=== PATIENT | female | born 1950 | race Caucasian/White ===

== ENCOUNTER → 2016-10-08 | Outpatient (CLI) | payer OTHER, MEDICARE ==
[~2016-10-08] VITALS: Ht 162.6 cm; Wt 88.0 kg
[~2016-10-08] MED LIST: ACTUNK; EZET10TA63 PO; GLC500 PO; JNVUNK; LANS30CA12 PO; TPRSRUNK; TRCUNK
[2016-10-08 16:23] VITALS: BP 114/77; PULSE 69; Ht 162.6 cm; Wt 88.0 kg
== END | disposition home or self-care (01) ==
LOC: C.NEUR 12:59
PROVIDERS: ATTEND Physician Assistant
DX: G47.30 Sleep apnea, unspecified (principal)

== ENCOUNTER 2023-06-10 08:02 | Inpatient (IN) ==
--- NOTE | 2023-06-10 08:24 | Emergency Department Note ---
Impression & Plan Acute upper gastrointestinal bleeding, Gastrointestinal hemorrhage with hematemesis, Abdominal ascites, Acute hyperglycemia ED Provider Note NAME: HARRIS MORALES AGE: 72 SEX: F : 1950 ARRIVES VIA: Ambulance INFORMANT: Patient, EMS ED PROVIDER(S): Jean Paul Elias DO CHIEF COMPLAINT: UGIB HPI: The patient is a 72-year-old female who presented to the emergency department for hematemesis. The patient started having nausea and vomiting since this morning. The patient called 911. She started having hematemesis. She was vomiting mostly dark emesis. The patient denies having any abdominal pain at this time. She denies having any chest pain. She has no history of similar GI bleeding in the past. 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 She does not take any blood thinners. The patient was treated with IV fluids prior to arrival. ROS: See above HPI for pertinent positives & negatives. A total of 10 systems reviewed and were otherwise negative. PAST MEDICAL HISTORY: See Below PAST SURGICAL HISTORY: See Below FAMILY HISTORY: See Below SOCIAL HISTORY: See Below HOME MEDICATIONS: See Below ALLERGIES: See Below VITALS: See Below PHYSICAL EXAMINATION: GENERAL: The patient is awake and alert. She is very anxious. EYES: The conjunctivae are clear. The pupils are round and reactive. EARS, NOSE, MOUTH AND THROAT: The nose is without any evidence of any deformity. NECK: The neck is nontender and supple. RESPIRATORY: Normal respiratory effort is noted there is no evidence of wheezing rhonchi or rales CARDIOVASCULAR: Regular rate and rhythm noted there no murmurs rubs or gallops normal S1 normal S2. GASTROINTESTINAL: The abdomen was distended but soft. There is no tenderness guarding or rigidity. Rectal exam revealed melena which was strongly heme positive. MUSCULOSKELETAL/EXTREMITIES: There is no evidence of gross deformity full range of motion is noted in the hips and shoulders. SKIN: There is no obvious evidence of any rash. There are no petechiae, pallor or cyanosis noted. NEUROLOGIC: Patient is awake alert and oriented x3 MEDICAL DECISION MAKING: The patient is a 72-year-old female who presented to the emergency department with upper GI bleeding. The patient started having hematemesis prior to arrival. She has no previous history of upper GI bleeding but she was diagnosed with nonalcoholic cirrhosis some years ago. She has had no specific follow-up for it. 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 I discussed patient's laboratory and radiographic studies with her. She was consented for blood products but at this time remained stable and does not require blood transfusion. Initial hemoglobin was low but still in an acceptable range. The patient was started on a Protonix drip and octreotide drip she was also treated with famotidine and Rocephin. She was given Zofran. I discussed the patient's laboratory and radiographic studies with her. I discussed her condition with the on-call golf club head inspector and adjuster. I also discussed her condition with the on-call [facility] hospitalist. They have agreed to evaluate the patient in the emergency department for further management and disposition. Triage Nursing notes reviewed. Prior medical records reviewed Vital Signs: reviewed and remarkable for Initial hypertension. Differential diagnosis: Diverticulosis, AVM, coagulopathy, colitis, inflammatory bowel disease, malignancy, Leslie-Whyte tear, esophagitis, peptic ulcer disease, variceal bleed, gastritis, epistaxis, fissure, hemorrhoids, as well as other pathologies. ER treatment provided: See below Diagnostics interpreted by me: ECG: EKG was obtained in the emergency department. My interpretation is normal sinus rhythm at 83 bpm. A left bundle branch block pattern was noted. There were no PVCs. No previous tracing was available for Cardiac Monitoring: An order was placed for continuous cardiac monitoring. The monitor shows a rate of 86 bpm with sinus rhythm Laboratory studies: As stated above and show below. Imaging studies: See below. Radiographic imaging was reviewed by myself Consultation(s): I discussed this case with Dr. Bean who is on-call for the gastroenterology group. I discussed this case with Dr. Harley who is on-call for the [facility] hospitalist group. ED COURSE: Procedures: none Critical Care: I have personally spent greater than 45 minutes of critical care time in the direct management of this patient. This includes bedside care, interpretation of diagnostic studies, and testing, discussion with consultants, patient, and family members, and other required patient management activities. This 45 minutes is in excess of all separately billable procedures. Past Med/Surg History Surgical History History of total abdominal hysterectomy History of parathyroidectomy History of tonsillectomy History of shoulder surgery History of knee surgery History of elbow surgery Family History Mother COPD (chronic obstructive pulmonary disease) Father Lung cancer Social History Smoking Status: Never smoker Hx Alcohol Use: No Preferred Language: Filipino marital status: current occupational status: retired Feels Safe at Home: Yes Allergies Allergies Allergy/AdvReac Type Severity Reaction Status Date / Time clindamycin Allergy Verified 06/10/23 11:16 Penicillins Allergy Verified 06/10/23 11:16 Home Meds Home Medications Medication Instructions Recorded Confirmed aspirin 81 mg tablet 0 mg PO DAILY 11/30/18 06/10/23 loratadine 10 mg tablet 0 mg PO DAILY 11/30/18 06/10/23 metoprolol succinate 100 mg 100 mg PO DAILY 01/23/20 06/10/23 tablet,extended release 24 hr sertraline 100 mg tablet 150 mg PO PM 01/23/20 06/10/23 verapamil 180 mg tablet,extended 180 mg PO BID 01/23/20 06/10/23 release colesevelam 625 mg tablet 625 mg PO QAM 06/02/22 06/10/23 pioglitazone 15 mg tablet 15 mg PO .EVERY OTHER MORNING 06/02/22 06/10/23 pravastatin 20 mg tablet 20 mg PO DAILY 06/02/22 06/10/23 empagliflozin 10 mg tablet 10 mg PO [id number] 06/10/23 06/10/23 (Jardiance) gabapentin 100 mg capsule 100 mg PO DAILY 06/10/23 06/10/23 meloxicam 15 mg tablet 15 mg PO DAILY 06/10/23 06/10/23 Results & Data (ED) Vital Signs Vital Signs - 24 hr 06/10/23 08:09 06/10/23 08:35 06/10/23 10:00 Temperature 36.5 C Temperature Source Oral Pulse Rate 84 88 85 Pulse Rate from SpO2 Sensor 85 Respiratory Rate 18 16 Respiratory Effort / Characteristics Non-Labored Spontaneous Respiratory Depth Normal Respiratory Pattern Regular Blood Pressure 152/86 H 145/68 H Blood Pressure Mean 108 93 Pulse Oximetry 95 92 Oxygen Delivery Method Room Air Sepsis Recent Fever Within 48 Hours No Sepsis New/Unexplained Change in Mental Status No Sepsis Action Taken by Nursing No Action Required 06/10/23 11:01 Temperature Temperature Source Pulse Rate 91 H Pulse Rate from SpO2 Sensor 91 H Respiratory Rate 18 Respiratory Effort / Characteristics Respiratory Depth Respiratory Pattern Blood Pressure 112/68 Blood Pressure Mean 82 Pulse Oximetry 94 Oxygen Delivery Method Sepsis Recent Fever Within 48 Hours Sepsis New/Unexplained Change in Mental Status Sepsis Action Taken by [facility] Medications Current Medication List: was personally reviewed by me Laboratory Data Attestation: I reviewed the patient's lab results. 06/10/23 12:17 06/10/23 12:17 Lab Results 06/10/23 06/10/23 06/10/23 Range/Units 08:10 08:20 08:21 WBC 10.79 (4.8-10.8) K/ul RBC 3.99 L (4.20-5.40) M/uL Hgb 11.8 L (12.0-16.0) g/dl POC Hgb 10.9 L (12.0-16.0) g/dl Hct 35.2 L (37.0-47.0) % POC Hct 32 L (37-47) % MCV 88.2 (80.0-100.0) fL MCH 29.6 (25.0-34.0) pg MCHC 33.5 (32.0-36.0) g/dL RDW Std Deviation 44.2 (36.4-46.3) fL RDW Coeff of Belle 13.5 (11.5-14.5) % Plt Count 173 (130-400) K/uL MPV 9.4 (9.4-12.4) fL Immature Gran % (Auto) 0.6 % Neut % (Auto) 75.4 % Lymph % (Auto) 18.6 % [place] % (Auto) 4.4 % Eos % (Auto) 0.8 % Baso % (Auto) 0.2 % Neut # (Auto) 8.13 H (1.40-6.50) K/uL Lymph # (Auto) 2.01 (1.20-3.40) K/uL [place] # (Auto) 0.48 (0.11-0.59) K/uL Eos # (Auto) 0.09 (0.00-0.50) K/uL Baso # (Auto) 0.02 (0.00-0.20) K/uL Immature Gran # (Auto) 0.06 (0.01-0.20) K/uL PT 12.8 H (9.0-12.0) Seconds INR 1.2 H (0.9-1.1) APTT 22 (21-31) Seconds PTT Ratio 0.8 POC Sodium 138 (135-144) mmol/L Sodium 135 L (136-145) mmol/L POC Potassium 5.1 H (3.3-5.0) mmol/L Potassium 5.0 (3.5-5.1) mmol/L POC Chloride 104 (101-112) mmol/L Chloride 103 (98-107) mmol/L Carbon Dioxide 25 (21-32) mmol/L POC Total CO2 25 (24-31) mmol/L Anion Gap 7 (3-11) POC Anion Gap 15.0 L (16-25) mmol/L POC BUN 38 H (7-18) mg/dl BUN 41 H (6-23) mg/dl Creatinine 0.83 (0.6-1.2) mg/dl POC Creatinine 0.8 (0.6-1.3) mg/dl Est Cr Clr Drug Dosing 65.1 ml/min Est GFR ( Amer) 80.5 ml/min Est GFR (Non-Af Amer) 69.5 ml/min BUN/Creatinine Ratio 49.4 H (10-20) Glucose 428 H* (70-99(Fasting)) mg/dl POC Glucose (other) 413 H* (70-99) mg/dl Calcium 8.5 L (8.6-10.3) mg/dl POC Ioniz Calcium Sin 1.17 (1.12-1.32) mmol/l Total Bilirubin 0.6 (0.2-1.0) mg/dl AST 29 (13-39) U/L ALT 34 (7-52) U/L Alkaline Phosphatase 46 (34-104) U/L Troponin I High Sens 5.4 (0-14) pg/ml Total Protein 6.3 (6.0-8.3) gm/dl Albumin 3.9 (3.4-5.0) gm/dl Globulin 2.4 L (2.5-4.0) gm/dl Albumin/Globulin Ratio 1.6 (0.9-2) Lipase 65 (11-82) U/L Urine Color Urine Appearance (Clear) Urine pH (4.5-7.5) Ur Specific [place] (1.000-1.030) Urine Protein (Negative) Urine Glucose (UA) (Negative) Urine Ketones (Negative) Urine Blood (Negative) Urine Nitrite (Negative) Urine Bilirubin (Negative) Urine Urobilinogen (Negative) Ur Leukocyte Esterase (Negative) Urine RBC (0-4) /hpf Urine WBC (0-5) /hpf Ur Epithelial Cells (0-5) /lpf Urine Bacteria (Negative) Blood Type A Positive Antibody Screen NEGATIVE 06/10/23 Range/Units 09:15 WBC (4.8-10.8) K/ul RBC (4.20-5.40) M/uL Hgb (12.0-16.0) g/dl POC Hgb (12.0-16.0) g/dl Hct (37.0-47.0) % POC Hct (37-47) % MCV (80.0-100.0) fL MCH (25.0-34.0) pg MCHC (32.0-36.0) g/dL RDW Std Deviation (36.4-46.3) fL RDW Coeff of Belle (11.5-14.5) % Plt Count (130-400) K/uL MPV (9.4-12.4) fL Immature Gran % (Auto) % Neut % (Auto) % Lymph % (Auto) % [place] % (Auto) % Eos % (Auto) % Baso % (Auto) % Neut # (Auto) (1.40-6.50) K/uL Lymph # (Auto) (1.20-3.40) K/uL [place] # (Auto) (0.11-0.59) K/uL Eos # (Auto) (0.00-0.50) K/uL Baso # (Auto) (0.00-0.20) K/uL Immature Gran # (Auto) (0.01-0.20) K/uL PT (9.0-12.0) Seconds INR (0.9-1.1) APTT (21-31) Seconds PTT Ratio POC Sodium (135-144) mmol/L Sodium (136-145) mmol/L POC Potassium (3.3-5.0) mmol/L Potassium (3.5-5.1) mmol/L POC Chloride (101-112) mmol/L Chloride (98-107) mmol/L Carbon Dioxide (21-32) mmol/L POC Total CO2 (24-31) mmol/L Anion Gap (3-11) POC Anion Gap (16-25) mmol/L POC BUN (7-18) mg/dl BUN (6-23) mg/dl Creatinine (0.6-1.2) mg/dl POC Creatinine (0.6-1.3) mg/dl Est Cr Clr Drug Dosing ml/min Est GFR ( Amer) ml/min Est GFR (Non-Af Amer) ml/min BUN/Creatinine Ratio (10-20) Glucose (70-99(Fasting)) mg/dl POC Glucose (other) (70-99) mg/dl Calcium (8.6-10.3) mg/dl POC Ioniz Calcium Sin (1.12-1.32) mmol/l Total Bilirubin (0.2-1.0) mg/dl AST (13-39) U/L ALT (7-52) U/L Alkaline Phosphatase (34-104) U/L Troponin I High Sens (0-14) pg/ml Total Protein (6.0-8.3) gm/dl Albumin (3.4-5.0) gm/dl Globulin (2.5-4.0) gm/dl Albumin/Globulin Ratio (0.9-2) Lipase (11-82) U/L Urine Color Yellow Urine Appearance Clear (Clear) Urine pH 5.0 (4.5-7.5) Ur Specific [place] 1.040 H (1.000-1.030) Urine Protein Negative (Negative) Urine Glucose (UA) 3+ H (Negative) Urine Ketones Trace H (Negative) Urine Blood 2+ H (Negative) Urine Nitrite Positive A (Negative) Urine Bilirubin Negative (Negative) Urine Urobilinogen Negative (Negative) Ur Leukocyte Esterase Negative (Negative) Urine RBC 0-4 (0-4) /hpf Urine WBC 5-10 H (0-5) /hpf Ur Epithelial Cells 5-10 H (0-5) /lpf Urine Bacteria 1+ H (Negative) Blood Type Antibody Screen Administered Medications Octreotide Acetate 500 mcg/ (Sodium Chloride) 100.5 mls @ 10.05 mls/hr IV .Q10H DANIEL Stop: 07/10/23 08:14 Last Admin: 06/10/23 09:19 Dose: 50 mcg/hr, 10.1 mls/hr Documented By: DUSTIN Insulin Aspart (Insulin Aspart Per Unit Charge) 0 units SC ACHS DANIEL Stop: 07/10/23 11:57 Last Admin: 06/10/23 13:04 Dose: 7 units Documented By: MT Co-signed By: MES Discontinued Medications Sodium Chloride (Nss) 500 mls @ 999 mls/hr IV .Q31M STA Stop: 06/10/23 08:38 Last Infusion: 06/10/23 09:44 Dose: Infused Documented By: Admin: 06/10/23 08:35 Dose: 999 mls/hr Documented By: DUSTIN Pantoprazole Sodium 80 mg/ (Dextrose) 120 mls @ 480 mls/hr IV NOW ONE Stop: 06/10/23 08:22 Last Infusion: 06/10/23 09:44 Dose: Infused Documented By: Admin: 06/10/23 09:16 Dose: 480 mls/hr Documented By: DUSTIN Pantoprazole Sodium 40 mg/ (Dextrose) 100 mls @ 20 mls/hr IV Q5H DANIEL Stop: 07/10/23 08:29 Last Admin: 06/10/23 09:44 Dose: 8 mg/hr, 20 mls/hr Documented By: DUSTIN Famotidine (Pepcid 20mg Iv Push) 20 mg in 5 mls @ 2.5 mls/min IV NOW STA Stop: 06/10/23 08:09 Last Admin: 06/10/23 08:36 Dose: 2.5 mls/min Documented By: DUSTIN Octreotide Acetate 50 mcg/ (Syringe) 10 mls @ 3 mls/min IV ONE STA Stop: 06/10/23 08:11 Last Admin: 06/10/23 09:13 Dose: 3 mls/min Documented By: DUSTIN Ceftriaxone Sodium (Rocephin) 2,000 mg in 50 mls @ 100 mls/hr IV NOW STA Stop: 06/10/23 09:07 Last Infusion: 06/10/23 09:44 Dose: Infused Documented By: Admin: 06/10/23 09:12 Dose: 100 mls/hr Documented By: DUSTIN Insulin Glargine (Lantus Per Unit Charge) 10 units SQ ONE ONE Stop: 06/10/23 12:31 Last Admin: 06/10/23 13:04 Dose: 10 units Documented By: DUSTIN Co-signed By: JOSE Insulin Human Regular (Novolin-R Insulin Per Unit Charge) 5 units IV NOW STA Stop: 06/10/23 08:47 Last Admin: 06/10/23 09:16 Dose: 5 units Documented By: DUSTIN Co-signed By: JOSE Ioversol (Optiray 320 500ml) 94 ml IV ONCE ONE Stop: 06/10/23 09:01 Last Admin: 06/10/23 09:00 Dose: 94 ml Documented By: KEYANNA Metoclopramide HCl (Metoclopramide Hcl Inj 5 Mg/Ml 2 Ml Vial) 10 mg IM ONCE ONE Stop: 06/10/23 11:16 Last Admin: 06/10/23 12:56 Dose: 10 mg Documented By: DUSTIN Miscellaneous (Stat Iv/Im) 1 each N/A NOW STA Stop: 06/10/23 08:09 Last Admin: 06/10/23 12:22 Dose: Not Given Documented By: DUSTIN Ondansetron HCl (Ondansetron Inj 2 Mg/Ml 2 Ml Vial) 4 mg IV NOW STA Stop: 06/10/23 08:13 Last Admin: 06/10/23 09:14 Dose: 4 mg Documented By: DUSTIN Ondansetron HCl (Ondansetron Inj 2 Mg/Ml 2 Ml Vial) Confirm Administered Dose 4 mg .ROUTE .STK-MED ONE Stop: 06/10/23 08:13 Last Admin: 06/10/23 09:03 Dose: Not Given Documented By: DUSTIN Pantoprazole Sodium (Pantoprazole Bolus/Drip) 1 each IV NOW STA Stop: 06/10/23 08:09 Last Admin: 06/10/23 12:21 Dose: Not Given Documented By: DUSTIN Imaging Data Attestation: I personally reviewed and interpreted this imaging study as follows: My Impression: 1 view chest x-ray was obtained in the emergency department. My interpretation is no free air or definite infiltrate, final report below. CT of the abdomen and pelvis was obtained in the emergency department. My interpretation is no free air, there was some ascites appreciated, final report pending. Radiologist's Impression: Chest X-Ray 06/10/23 08:09 XR chest 1V portable CLINICAL HISTORY: vomiting COMPARISON STUDY: No previous studies for comparison. FINDINGS: Lung volumes are normal. Lungs are clear. There is no pneumothorax or pleural effusion. Cardiac size is normal. Mediastinal contours are normal. There is no evidence for pulmonary edema. IMPRESSION: No acute cardiopulmonary findings. ACT 112: Negative or not required by law. Electronically signed by: Jhony Maguire M.D. 06/10/2023 8:36 AM Abdomen/Pelvis CT 06/10/23 08:[address] WITH IV CONTRAST CT DOSE: 1301.89 mGy.cm HISTORY: Acute nausea with vomiting and upper GI bleed UGIB TECHNIQUE: Multiaxial CT images of the abdomen and pelvis were performed following the IV administration of 94 cc of Optiray, A dose lowering technique was utilized adhering to the principles of ALARA. COMPARISON STUDY: None. FINDINGS: Heart is upper limits of normal in size with coronary arterial calcifications. Right cardiophrenic lymph nodes measure up to 10 x 8 mm. Clear lung bases. No free air. Cirrhosis with splenomegaly, 15 cm. The liver measures up to 22 cm in length. No suspicious hepatic mass lesions identified. Left hepatic lobe cyst, 9 mm. Patency of the hepatic and portal veins. Cholecystectomy. Mild likely postsurgical biliary ductal dilation. Mildly atrophic pancreas. 9 mm indeterminate soft tissue attenuating left adrenal gland nodule. Unremarkable right adrenal gland. Unremarkable kidneys. No hydronephrosis. Urinary bladder is within normal limits. Hysterectomy. Atherosclerosis of the aorta and branch vessels without aneurysm. Borderline-enlarged diaphragmatic and mesenteric lymph nodes measure up to 10 mm. Hyperdense debris noted within the gastric lumen. There is a 2 cm focus of debris, clot or lesion along the nondependent gastric body on image 57 series 3. No definite esophageal or gastric varicosities identified. Small volume of abdominal pelvic ascites. Colonic diverticulosis. There is wall thickening noted throughout the majority of the large bowel. Normal appendix. Numerous loops of small bowel also demonstrate wall thickening, notably within the left mid abdomen. No bowel obstruction. No acute fracture. IMPRESSION: 1. Cirrhosis with hepatosplenomegaly and small volume of ascites compatible with portal venous hypertension. 2. Wall thickening within several loops of large and small bowel is likely secondary to portal colopathy/enteropathy with a nonspecific enterocolitis considered less likely. 3. Hyperdense material within the gastric lumen suggestive of blood products with a 2 cm clot versus lesion within the nondependent gastric body. 4. Nonspecific borderline enlarged cardiophrenic, gastrohepatic, mesenteric and periportal lymph nodes. 5. Colonic diverticulosis. ACT 112: Negative or not required by law. The above report was generated using voice recognition software. It may contain grammatical, syntax or spelling errors. Electronically signed by: Delbert Acosta M.D. 06/10/2023 9:27 AM Discharge Plan Visit Data Chief Complaint: GI Bleed ED Provider: Jean Paul Elias Discharge Problem: Acute upper gastrointestinal bleeding, Gastrointestinal hemorrhage with hematemesis, Abdominal ascites, Acute hyperglycemia Patient Disposition: Being Evaluated by Hospitalist Discharge Instructions Interventions: ED Discharge Assessment Last Done: 06/10/23 11:53 Discharge Problem: Abdominal ascites Qualifiers: Ascites type: other type Qualified Code(s): R18.8 - Other ascites
[2023-06-10 08:33] LABS: iSTAT Creatinine 0.8 mg/dl (0.6-1.3); iSTAT Hemoglobin 10.9 g/dl (12.0-16.0); iSTAT Ionized Calcium 1.17 mmol/l (1.12-1.32); iSTAT Potassium 5.1 mmol/L (3.3-5.0)
[2023-06-10] MEDS: SODIUM CHLORIDE 0.9% 500 ML IV STA (08:35)
[2023-06-10] MEDS: FAMOTIDINE 20MG IV PUSH 20 MG/5 ML SYR IV STA (08:36)
--- NOTE | 2023-06-10 08:38 | XRay Report ---
XR chest 1V portable CLINICAL HISTORY: vomiting COMPARISON STUDY: No previous studies for comparison. FINDINGS: Lung volumes are normal. Lungs are clear. There is no pneumothorax or pleural effusion. Car diac size is normal. Mediastinal contours are normal. There is no evidence for pulmonary edema. IMPRESSION: No acute cardiopulmonary findings. ACT 112: Negative or not required by law. Electronically signed by: Jhony Maguire M.D. 06/10/2023 8:36 AM
[2023-06-10 08:52] LABS: Basophils # (auto) 0.02 K/uL (0.00-0.20); Basophils % (auto) 0.2 %; Eosinophils # (auto) 0.09 K/uL (0.00-0.50); Eosinophils % (auto) 0.8 %; Hematocrit (blood only) 35.2 % (37.0-47.0); Hemoglobin 11.8 g/dl (12.0-16.0); Immature Granulocytes # (auto) 0.06 K/uL (0.01-0.20); Immature Granulocytes % (auto) 0.6 %; Lymphocytes # (auto) 2.01 K/uL (1.20-3.40); Lymphocytes % (auto) 18.6 %; Mean Corpuscular Hemoglobin 29.6 pg (25.0-34.0); Mean Corpuscular Hgb Conc 33.5 g/dL (32.0-36.0); Mean Corpuscular Volume 88.2 fL (80.0-100.0); Mean Platelet Volume 9.4 fL (9.4-12.4); Monocytes # (auto) 0.48 K/uL (0.11-0.59); Monocytes % (auto) 4.4 %; Neutrophils # (auto) 8.13 K/uL (1.40-6.50); Neutrophils % (auto) 75.4 %; Platelet Count 173 K/uL (130-400); RDW Coefficient of Variation 13.5 % (11.5-14.5); RDW Standard Deviation 44.2 fL (36.4-46.3); Red Blood Count 3.99 M/uL (4.20-5.40); White Blood Count 10.79 K/ul (4.8-10.8)
[2023-06-10] MEDS: OPTIRAY 320 500ml IV ONE (09:00)
[2023-06-10] MEDS: ONDANSETRON INJ 2 MG/ML 2 ML VIAL ONE (09:03)
[2023-06-10] MEDS: cefTRIAXone SODIUM 2,000 MG/50 ML BAG IV STA (09:12)
[2023-06-10] MEDS: OCTREOTIDE ACETATE 50 MCG in SYRINGE 9.5 ML IV STA (09:13)
[2023-06-10] MEDS: ONDANSETRON INJ 2 MG/ML 2 ML VIAL IV STA (09:14)
[2023-06-10 09:16] LABS: Albumin Globulin Ratio 1.6 (0.9-2); Albumin Level 3.9 gm/dl (3.4-5.0); BUN Creatinine Ratio 49.4 (10-20); Bilirubin,Total 0.6 mg/dl (0.2-1.0); Calcium 8.5 mg/dl (8.6-10.3); Creatinine Clr Calc Pharmacy 65.1 ml/min; Est GFR (African American) 80.5 ml/min; Est GFR (Non-African American) 69.5 ml/min; Globulin 2.4 gm/dl (2.5-4.0); Total Protein 6.3 gm/dl (6.0-8.3); Troponin I High Sensitivity 5.4 pg/ml (0-14)
[2023-06-10] MEDS: PANTOprazole 80 MG in DEXTROSE 5% 100 ML IV ONE (09:16)
[2023-06-10] MEDS: NovoLIN-R INSULIN PER UNIT CHARGE IV STA (09:16)
--- OUTSIDE RECORDS SUMMARY | 2023-06-10 09:16 | External Medical Summary | Summary of Care ---
Author Name Unknown Organization [facility] Address [address] [place] [address] Phone [phone] Care Team Providers Care Mortgage Analyst Name Role Phone Thelma James MD Primary Care Provider [phone] Encounter Details Date Type Department Care Team (Late st Contact Info) Description 06/08/2023 Orders Only Radiology [address] [place] [address] Requisition, External Radiology [address] [place] [address] Pain in thoracic spine*; Radiculopathy, thoracic region Allergies Active Allergy Reactions Criticality Noted Date Comments Clindamycin Hives 02/15/2013 Hives Erythromycin Rash 02/23/2021 Penicillin G Rash 07/24/2020 Other reaction(s): swelling of throat Penicillins 11/13/1979 hives/rash/swelling documented as of this encounter (statuses as of 06/08/2023) Medications Medication Sig Dispensed Refills Start Date End Date Status Dulaglutide (TRULICITY) 0.75 MG/0.5ML SOPN Inject under the skin. 0 Active fenofibrate (TRICOR) 145 MG Tablet Take 145 mg by mouth every night at bedtime. 1 tab daily 1 12/27/2017 Active Cholecalciferol (VITAMIN D3) 5000 units Tablet Take 5,000 Units by mouth daily. 0 Active doxycycline hyclate 100 MG CapsuleIndications:N on-healing surgical wound, sequela 1 capsule twice daily w/food 14 Cap 0 12/11/2019 Active Diclofenac Sodium 1 % External Gel 1 Applicator by Device route as needed. 0 05/21/2020 Active Co Q-10 400 MG Oral Capsule Take 400 mg by mouth daily. 0 05/09/2020 Active Loratadine 10 MG Oral Capsule Take 10 mg by mouth daily. 0 12/24/2019 Active Magnesium Gluconate 250 MG Oral Tablet Take 400 mg by mouth. 0 12/24/2019 Active Verapamil HCl ER 180 MG Oral Capsule Extended Release 24 Hour Take 180 mg by mouth daily. 0 04/01/2020 Active Aspirin 81 MG Oral Tablet Delayed Release Take 81 mg by mouth daily. 0 12/24/2019 Active Colesevelam HCl 625 MG Oral Tablet (Welchol) Take 625 mg by mouth once a day on Tuesday, , and Tuesday only. 0 12/24/2019 Active Sertraline HCl 100 MG Oral Tablet (Zoloft) Take 100 mg by mouth daily. 0 12/24/2019 Active Metoprolol Succinate ER 100 MG Oral Tablet Extended Release 24 Hour (Toprol XL) Take 50 mg by mouth daily. 0 01/11/2020 Active Empagliflozin 10 MG Oral Tablet (Jardiance) Take 10 mg by mouth daily. 0 12/24/2019 Active Famotidine 20 MG Oral Tablet (Pepcid) Take 20 mg by mouth 2 times a day. 0 Active Pioglitazone HCl 15 MG Oral Tablet (Actos) 0 11/11/2020 Active documented as of this encounter (statuses as of 06/08/2023) Active Problems Problem Noted Date Diagnosed Date Hx of nonmelanoma skin cancer 07/31/2021 Overview: SCC R dorsal hand 06/2020 Primary osteoarthritis of fi rst carpometacarpal joint of right hand 07/04/2020 Hx of actinic keratosis 02/26/2016 Severe obesity with body mas s index (BMI) of 35.0 to 39.9 with serious comorbidity 10/13/2009 Overview: Per Obesity Protocol, #19 ICD-10 update of inactive diagnosis DYSLIPIDEMIA, GOAL LDL BELOW 100 04/17/2009 Overview: Per Lipid Taxonomy. HTN, GOAL BELOW 130/80 03/25/2009 Overview: Modified per HTN protocol #16. Type 2 diabetes mellitus wit h hemoglobin A1c goal of less than 7.0% 02/27/2009 Overview: Per Diabetes Taxonomy. ICD-10 update of inactive term Synovial cyst 01/19/2008 ADVANCE DIRECTIVE INFORMATION 09/06/2006 Overview: No, Advance Directive brochure given to patient. 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 ULCERATIVE COLITIS, UNSPECIFIED 06/17/2008 PURE HYPERCHOLESTEROLEM 04/01 Overview: Per Lipid Taxonomy. Panic disorder 06/17/2008 Major depressive disorder Overview: ICD-10 update of inactive term Type 2 diabetes mellitus wit h hemoglobin A1c goal of less than 7.0% 02/27/2009 Overview: Per Diabetes Taxonomy. ICD-10 update of inactive term documented as of this encounter (statuses as of 06/08/2023) Social History Tobacco Use Types Packs/Day Years Used Date Smoking Tobacco: Never Smokeless Tobacco: Never Alcohol Use Standard Drinks/Week Comments No 0 (1 standard drink = 0.6 oz pur e alcohol) Sex and Gender Information Value Date Recorded Sex Assigned at Not on file Gender Identity Not on file Sexual Orientation Not on file Job Start Date Occupation Industry Not on file Not on file Not on file documented as of this encounter Plan of Treatment Upcoming Encounters Date Type Department Care Team (Late st Contact Info) Description 01/11/2024 10:00 AM EDT Imaging Radiology [address] [place] [address] Pending Results Name Type Priority Associated Diagnoses Date /Time XR T SPINE AP AND LATERAL Medical Imaging Routine Pain in thoracic spine Radiculopathy, thoracic region 06/08/2023 10:53 AM EST Health Maintenance Due Date Last Done Comments Depression Screening 1960 Diabetic Foot Exam 1966 DTaP,Tdap,and Td Vaccines (1 - Tdap) 08/28/1967 Cologuard 1993 Colonoscopy 1993 Colorectal Cancer Screening 1993 Fecal Occult Blood Test 1993 Sigmoidoscopy 1993 Zoster Vaccines (1 of 2) 1998 Pneumococcal Vaccine: 65+ Years (2 - PCV) 02/11/2000 02/10/1999 Hepatitis B (1 of 3 - Risk 3-dose series) 2008 HbA1c 02/11/2018 08/12/2017, 04/02, 01/11/2017, Additional history exists Albumin/Creatinine Ratio 04/20/2018 017, 01/11/2017, 10/07/2016, Additional history exists GFR 09/01/2018 09/01/2017, 07/31, 04/20/2017, Additional history exists DXA Scan 07/25/2021 07/25/2014, 02/19/2011 Lipid Panel 08/12/2022 08/12/2017, 12/31, 10/07/2016, Additional history exists COVID-19 Vaccine ( season) 2022 06/30/2020, 06/09/2020 Influenza Vaccine (FLU shot) (#1) 2022 Diabetic Eye Exam 12/15/2023 12/14/2022, , 12/22/2020, Additional history exists Mammogram 01/08/2024 01/07/2023, 11/30, 12/15/2020, Additional history exists Hepatitis C Screening Completed 05/10/2014 GARDASIL-HPV IMMUNIZATION SERIES Aged Out No longer eligible based on patient's age to complete this topic MENINGOCOCCAL (MENACTRA/MENVEO) Aged Out No longer eligible based on patient's age to complete this topic documented as of this encounter Medical Devices Not on filedocumented as of this encounter Visit Diagnoses Diagnosis Pain in thoracic spine- Primary Radiculopathy, thoracic region Thoracic or lumbosacral neuritis or radiculitis, unspecified documented in this encounter Care Teams Mortgage Analyst Relationship Specialty Start Date End Date Thelma James MD [address] [place] [address] [place] [address] PCP - General 08/09/00 documented as of this encounter
--- OUTSIDE RECORDS SUMMARY | 2023-06-10 09:16 | External Medical Summary | Summary of Care ---
Author Name Unknown Organization [facility] Address [address] [place] [address] Phone [phone] Care Team Providers Care Table Tender Name Role Phone Thelma James MD Primary Care Provider [phone] Encounter Details Date Type Department Care Team (Late st Contact Info) Description 06/07/2023 Orders Only Access Center, [place] [address] [place] [address] Ext *DO NOT REMOVE THIS DEPARTMENT* [place] [id number] Requisition, External Radiology [address] [place] [address] Other specified diseases of liver*; Fatty (change of) liver, not elsewhere classified; Unspecified abdominal pain Allergies Active Allergy Reactions Criticality Noted Date Comments Clindamycin Hives 02/15/2013 Hives Erythromycin Rash 02/23/2021 Penicillin G Rash 07/24/2020 Other reaction(s): swelling of throat Penicillins 11/13/1979 hives/rash/swelling documented as of this encounter (statuses as of 06/07/2023) Medications Medication Sig Dispensed Refills Start Date [...] as of this encounter (statuses as of 06/07/2023) Active Problems Problem Noted Date Diagnosed Date [...] as of this encounter (statuses as of 06/07/2023) Resolved Problems Problem Noted Date Diagnosed Date [...] as of this encounter (statuses as of 06/07/2023) Social History Tobacco Use Types Packs/Day Years [...] Description 01/11/2024 10:00 AM EDT Imaging Radiology [address] [place] [id number] Scheduled Orders Name Type Priority Associated Diagnoses Orde r Schedule US ABDOMEN COMPLETE Medical Imaging Routine Other specified diseases of liver Fatty (change of) liver, not elsewhere classified Unspecified abdominal pain Expected: 06/07/2023, Expires: 07/05/2024 Health Maintenance Due Date Last Done Comments [...] as of this encounter Visit Diagnoses Diagnosis Other specified diseases of liver- Primary Fatty (change of) liver, not elsewhere classified Unspecified abdominal pain documented in this encounter Care Teams Table Tender Relationship Specialty Start Date End Date Thelma James MD [address] [place] [address] [place] [address] PCP - General 08/09/00 documented as of this encounter
--- OUTSIDE RECORDS SUMMARY | 2023-06-10 09:16 | External Medical Summary | Summary of Care ---
Author Name Unknown Organization [facility] Address [address] [place] [address] Phone [phone] Care Team Providers Care Master Lay Out Specialist Name Role Phone Thelma James MD Primary Care Provider [phone] Encounter Details Date Type Department Care Team (Late st Contact Info) Description 06/03/2023 Orders Only Radiology [address] [place] [address] Requisition, External Radiology [address] [place] [address] Low back pain*; Hip pain, left; Hip pain, right Allergies Active Allergy Reactions Criticality Noted Date Comments Clindamycin Hives 02/15/2013 Hives Erythromycin Rash 02/23/2021 Penicillin G Rash 07/24/2020 Other reaction(s): swelling of throat Penicillins 11/13/1979 hives/rash/swelling documented as of this encounter (statuses as of 06/03/2023) Medications Medication Sig Dispensed Refills Start Date [...] as of this encounter (statuses as of 06/03/2023) Active Problems Problem Noted Date Diagnosed Date [...] as of this encounter (statuses as of 06/03/2023) Resolved Problems Problem Noted Date Diagnosed Date [...] as of this encounter (statuses as of 06/03/2023) Social History Tobacco Use Types Packs/Day Years [...] Description 01/11/2024 10:00 AM EDT Imaging Radiology [address] [place] [address] Pending Results Name Type Priority Associated Diagnoses Date /Time XR L SPINE COMPLETE Medical Imaging Routine Low back pain Hip pain, left Hip pain, right 06/03/2023 10:22 AM EST XR HIP BILAT 3-4 VIEWS INCLUDING AP OF PELVIS Medical Imaging Routine Low back pain Hip pain, left Hip pain, right 06/03/2023 10:22 AM EST Health Maintenance Due Date Last [...] as of this encounter Visit Diagnoses Diagnosis Low back pain- Primary Lumbago Hip pain, left Pain in joint, pelvic region and thigh Hip pain, right Pain in joint, pelvic region and thigh documented in this encounter Care Teams Master Lay Out Specialist Relationship Specialty Start Date End Date Thelma James MD [address] [place] [address] [place] [address] PCP - General 08/09/00 documented as of this encounter
[2023-06-10 09:17] LABS: INR 1.2 (0.9-1.1); Partial Thromboplastin Ratio 0.8; Partial Thromboplastin Time 22 Seconds (21-31); Prothrombin Time 12.8 Seconds (9.0-12.0)
[2023-06-10] MEDS: OCTREOTIDE ACETATE 500 MCG in 0.9 % SODIUM CHLORIDE 100 ML IV SCH (09:19)
--- NOTE | 2023-06-10 09:29 | CT Scan Report ---
ABDOMEN AND PELVIS CT WITH IV CONTRAST CT DOSE: 1301.89 mGy.cm HISTORY: Acute nausea with vomiting and upper GI bleed UGIB TECHNIQUE: Multiaxial CT images of the abdomen and pelvis were performed following the IV administrat ion of 94 cc of Optiray, A dose lowering technique was utilized adhering to the principles of ALARA. COMPARISON STUDY: None. FINDINGS: Heart is upper limits of normal in size with coronary arterial calcifications. Right cardio phrenic lymph nodes measure up to 10 x 8 mm. Clear lung bases. No free air. Cirrhosis with splenomegaly, 15 cm. The liver measures up to 22 cm in length. No suspici ous hepatic mass lesions identified. Left hepatic lobe cyst, 9 mm. Patency of the hepatic and portal veins. Cholecystectomy. Mild likely postsurgical biliary ductal dilation. Mildly atrophic pancreas. 9 mm indeterminate soft tissue attenuating left adrenal gland nodule. Unremarkable right adrenal gland . Unremarkable kidneys. No hydronephrosis. Urinary bladder is within normal limits. Hysterectomy. Ather osclerosis of the aorta and branch vessels without aneurysm. Borderline-enlarged diaphragmatic and me senteric lymph nodes measure up to 10 mm. Hyperdense debris noted within the gastric lumen. There is a 2 cm focus of debris, clot or lesion tonie ng the nondependent gastric body on image 57 series 3. No definite esophageal or gastric varicosities identified. Small volume of abdominal pelvic ascites. Colonic diverticulosis. There is wall thickeni ng noted throughout the majority of the large bowel. Normal appendix. Numerous loops of small bowel a lso demonstrate wall thickening, notably within the left mid abdomen. No bowel obstruction. No acute fracture. IMPRESSION: 1. Cirrhosis with hepatosplenomegaly and small volume of ascites compatible with portal venous hypert ension. 2. Wall thickening within several loops of large and small bowel is likely secondary to portal colopa thy/enteropathy with a nonspecific enterocolitis considered less likely. 3. Hyperdense material within the gastric lumen suggestive of blood products with a 2 cm clot versus lesion within the nondependent gastric body. 4. Nonspecific borderline enlarged cardiophrenic, gastrohepatic, mesenteric and periportal lymph node s. 5. Colonic diverticulosis. ACT 112: Negative or not required by law. The above report was generated using voice recognition software. It may contain grammatical, syntax o r spelling errors. Electronically signed by: Delbert Acosta M.D. 06/10/2023 9:27 AM
[2023-06-10] MEDS: PANTOprazole 40 MG in DEXTROSE 5% MINI-B 100 ML IV SCH ×2 (09:44→15:20)
[2023-06-10 09:52] LABS: Appearance Urine Clear (Clear); Bilirubin Urine Negative (Negative); Blood Urine 2+ (Negative); Color Urine Yellow; Glucose Urine UA 3+ (Negative); Ketones Urine Trace (Negative); Leukocyte Esterase Urine Negative (Negative); Nitrite Urine Positive (Negative); Protein Urine Negative (Negative); Urobilinogen Urine Negative (Negative)
--- NOTE | 2023-06-10 10:20 | Gastrointestinal Consultation ---
Date of Consultation June 10, 2023 Assessment & Plan (1) Acute upper gastrointestinal bleeding: Discussed case with Dr. Bean who advised on plan. - set patient up for an EGD for today. risks/benefits were discussed and patient is agreeable to having done. - will order Reglan 10mg IV to be given 30-60 minutes prior to EGD. - continue with protonix drip. - monitor hgb/hct and transuse as needed. Supervising Physician Co-Signing Physician Notes I saw the patient and agree with the findings as documented by MITCHEL Sanches History of Present Illness Reason for Consultation: UGIB Requesting Physician: Jean Paul Elias DO History of Present Illness Patient is a 72 year old female who presented to the ED this morning after an episode of hematemesis with a large amount of blood per patient. she has had no further emesis since she has been here. She tells me that yesterday she felt in her usual state of health. she does admit to use of meloxicam this week for back pain she was having which is new. she tells me that this morning she did have a black stool but no brbpr. she tells me she has a history of cirrhosis which she previously followed with [facility] in [facility] and she tells me this was from fatty liver. She had EGD and Colonoscopy with [facility] in the past but I do not have these records and she was unsure of results. rest of GI ros are unremarkable. 06/10/23 hgb 11.8. Allergies Allergy/AdvReac Type Severity Reaction Status Date / Time clindamycin Allergy Verified 06/10/23 11:16 Penicillins Allergy Verified 06/10/23 11:16 Home Medications Medication Instructions Recorded Confirmed Type aspirin 81 mg tablet 0 mg PO DAILY 11/30/18 06/10/23 History loratadine 10 mg tablet 0 mg PO DAILY 11/30/18 06/10/23 History metoprolol succinate 100 mg 100 mg PO DAILY 01/23/20 06/10/23 History tablet,extended release 24 hr sertraline 100 mg tablet 150 mg PO PM 01/23/20 06/10/23 History verapamil 180 mg tablet,extended 180 mg PO BID 01/23/20 06/10/23 History release colesevelam 625 mg tablet 625 mg PO QAM 06/02/22 06/10/23 History pioglitazone 15 mg tablet 15 mg PO .EVERY OTHER MORNING 06/02/22 06/10/23 History pravastatin 20 mg tablet 20 mg PO DAILY 06/02/22 06/10/23 History empagliflozin 10 mg tablet 10 mg PO 3XWK 06/10/23 06/10/23 History (Jardiance) gabapentin 100 mg capsule 100 mg PO DAILY 06/10/23 06/10/23 History meloxicam 15 mg tablet 15 mg PO DAILY 06/10/23 06/10/23 History Patient History Surgical History History of total abdominal hysterectomy History of parathyroidectomy History of tonsillectomy History of shoulder surgery History of knee surgery History of elbow surgery Family History Mother COPD (chronic obstructive pulmonary disease) Father Lung cancer Social History Smoking Status: Never smoker Hx Alcohol Use: No Hx Substance Use: No Preferred Language: Zimbabwean Communication Ability: Effective Chemical Process Analyst Required: No Beliefs That Will Affect Care: None marital status: Current Living Situation: Alone current occupational status: retired Other Information That Helps Us Care for You: No Feels Safe at Home: Yes Safety Concerns: Feels Safe At This Time Assistive Devices: Glasses Review of Systems Review of Systems: All systems reviewed & are unremarkable except as noted in HPI & below Physical Exam Constitutional: WD/WN, vitals as above Respiratory: normal respiratory effort, lungs clear to auscultation Cardiovascular: RRR, no murmur, no edema Gastrointestinal (Abdomen): epigastric tenderness to palpation. no guarding, soft, normal bowel sounds. Skin: no rashes, warm and dry Psychiatric: Orientation: alert and oriented x 3 Results & Data Vital Signs (Past 12 Hours) Vital Signs Temp Pulse Resp BP Pulse Ox O2 Del Method 06/10/23 08:35 88 06/10/23 08:09 97.7 F 84 18 152/86 H 95 Room Air PG Care Time/CCT Total # of Minutes Spent Total Time Spent with Patient: Total time spent is greater than 50% in coordination of care (as documented) at patient's floor/unit and/or counseling patient: Coding Level of Care Code 70280 INT INP/OBS CARE MIN Diagnoses Acute upper gastrointestinal bleeding K92.2
[2023-06-10 10:33] LABS: Bacteria Urine 1+ (Negative); RBC Urine 0-4 /hpf (0-4)
--- NOTE | 2023-06-10 11:03 | History & Physical Report ---
Date of Service June 10, 2023 Assessment & Plan (1) Acute upper gastrointestinal bleeding: Plan: Bleeding esophageal varices or bleeding gastric ulcer are primary concerns. Continue n.p.o. status. Continue Protonix drip and octreotide drip. GI consultation has been requested and she will undergo EGD later today. 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 No previous history of esophageal varices (3) Diabetes: Plan: Type II. Basal insulin therapy for now. Sliding scale coverage (4) Hypertension: Plan: Continue metoprolol and verapamil. Telemetry Plan To be determined History of Present Illness Chief Complaint: Hematemesis and melena Primary Care Provider: Dee Jmaes 72-year-old female who states she has a history of nonalcohol induced cirrhosis and also a history of peptic ulcer disease. Yesterday she developed melena and gross hematemesis. She also has epigastric discomfort. She normally takes Pepcid. She is currently on Protonix and octreotide infusion. GI consult has been obtained and she will undergo EGD later today. She denies gross hematochezia. Will continue metoprolol and verapamil along with basal insulin therapy for now along with IV fluids. Avoid subcutaneous heparin or Lovenox for now. Allergies Allergy/AdvReac Type Severity Reaction Status Date / Time clindamycin Allergy Verified 06/02/22 08:47 Penicillins Allergy Verified 06/02/22 08:47 Home Medications Medication Instructions Recorded Confirmed Type aspirin 81 mg tablet PO 11/30/18 06/02/22 History fenofibrate nanocrystallized 145 PO 11/30/18 06/02/22 History mg tablet loratadine 10 mg tablet PO 11/30/18 06/02/22 History dulaglutide 0.75 mg/0.5 mL See Rx Instructions subcut WEEKLY 12/11/18 06/02/22 History subcutaneous pen injector famotidine PO 01/23/20 06/02/22 History metoprolol succinate 100 mg 100 mg PO DAILY 01/23/20 06/02/22 History tablet,extended release 24 hr sertraline 100 mg tablet 100 mg PO DAILY 01/23/20 06/02/22 History verapamil 180 mg tablet,extended 180 mg PO DAILY 01/23/20 06/02/22 History release colesevelam 625 mg tablet See Rx Instructions PO .COMPLEX 06/02/22 06/02/22 History conjugated estrogens 0.625 mg/gram 0.625 mg vaginal 06/02/22 06/02/22 History vaginal cream (Premarin) pioglitazone 15 mg tablet 15 mg PO 06/02/22 06/02/22 History pravastatin 20 mg tablet 20 mg PO DAILY 06/02/22 06/02/22 History Past Med/Surg History Surgical History History of total abdominal hysterectomy History of parathyroidectomy History of tonsillectomy History of shoulder surgery History of knee surgery History of elbow surgery Family History Mother COPD (chronic obstructive pulmonary disease) Father Lung cancer Social History Smoking Status: Never smoker Hx Alcohol Use: No Preferred Language: Welsh marital status: current occupational status: retired Feels Safe at Home: Yes Review of Systems 2 Review of Systems: Constitutional-no fever or chills ENT-no blurred vision, no double vision, no epistaxis, no sore throat Respiratory-no cough, no wheezing, no shortness of breath Cardiac-no palpitations, no chest pain, no syncope GI-several episodes of hematemesis and melena. No hematochezia. She does describe epigastric discomfort -no urinary retention, no urinary incontinence, no dysuria, no hematuria Musculoskeletal-no joint pain, no muscle tenderness Skin-no bruising, no rashes, no pruritus Neuro-no isolated weakness, no paresthesia, no weakness Psych-no depression, no anxiety Physical Exam 2 Physical Exam: General-alert and oriented x3, no fever, no chills HEENT-head atraumatic and normocephalic, pupils equal and reactive to light, extraocular muscles intact Neck-no lymphadenopathy or thyromegaly, trachea midline Chest-clear to auscultation. No rales ,wheezing or rhonchi Cardiac-regular rate and rhythm, normal S1 and S2 Abdomen-normal bowel sounds, nontender, no hepatosplenomegaly Extremities-no cyanosis, clubbing, or edema. Brawny induration noted bilateral lower extremities below the knees Neuro-cranial nerves II through XII intact, motor and sensory function within normal limits, strength symmetrical, no focal deficits Psych-normal affect, normal mood Results & Data Results & Data Vital Signs (Past 12 Hours) Vital Signs Temp Pulse Resp BP Pulse Ox O2 Del Method 06/10/23 08:35 88 06/10/23 08:09 36.5 C 84 18 152/86 H 95 Room Air Laboratory Results 06/10/23 08:10 06/10/23 08:10 PG Care Time/CCT Total # of Minutes Spent Total Time Spent with Patient: Total time spent is greater than 50% in coordination of care (as documented) at patient's floor/unit and/or counseling patient: Coding Level of Care Code 09569 INT INP/OBS CARE 3/75MIN Diagnoses Acute upper gastrointestinal bleeding K92.2 Cryptogenic cirrhosis K74.69 Diabetes E11.9 Hypertension I10
--- NOTE | 2023-06-10 11:07 | Electrocardiogram Report ---
Test Reason : Blood Pressure : / mmHG Vent. Rate : 083 BPM Atrial Rate : 083 BPM P-R Int : 192 ms QRS Dur : 120 ms QT Int : 382 ms P-R-T Axes : 026 -45 096 degrees QTc Int : 448 ms Normal sinus rhythm Left axis deviation Left bundle branch block Abnormal ECG No previous ECGs available Confirmed by Leoncio Mann ([id number]) on 06/10/2023 11:07:17 AM Referred By: Confirmed By:Leoncio Mann
[2023-06-10] MEDS ORDERED: OCTREOTIDE ACETATE 500 MCG in 0.9 % SODIUM CHLORIDE 100 ML IV SCH (11:58)
[2023-06-10] MEDS ORDERED: PANTOPRAZOLE BOLUS/DRIP IV STA (11:58)
[2023-06-10] MEDS ORDERED: GLUCOSE 40% GEL 15 GM TUBE PO PRN (11:58)
[2023-06-10] MEDS ORDERED: GLUCOSE 10 TAB/TUBE PO PRN (11:58)
[2023-06-10] MEDS ORDERED: GLUCAGON FOR INJ 1 MG VIAL SQ PRN (11:58)
[2023-06-10] MEDS ORDERED: STAT IV/IM STA (11:58)
[2023-06-10] MEDS ORDERED: DEXTROSE 50% 50 ML SYRINGE IV PRN (11:58)
[2023-06-10] MEDS ORDERED: CARBOHYDRATES FOR HYPOGLYCEMIA PO PRN (11:58)
[2023-06-10] MEDS ORDERED: PANTOprazole 80 MG in DEXTROSE 5% 100 ML IV ONE (12:15)
[2023-06-10] MEDS: PANTOPRAZOLE BOLUS/DRIP IV STA (12:21)
[2023-06-10] MEDS: STAT IV/IM STA (12:22)
[2023-06-10] MEDS: METOCLOPRAMIDE HCL INJ 5 MG/ML 2 ML VIAL IM ONE (12:56)
[2023-06-10 12:57] LABS: BUN Creatinine Ratio 56.8 (10-20); Calcium 8.8 mg/dl (8.6-10.3); Creatinine Clr Calc Pharmacy 66.7 ml/min; Est GFR (African American) 82.9 ml/min; Est GFR (Non-African American) 71.5 ml/min; Potassium 5.4 mmol/L (3.5-5.1)
[2023-06-10] MEDS: INSULIN ASPART PER UNIT CHARGE SC SCH (13:04)
[2023-06-10] MEDS: LANTUS PER UNIT CHARGE SQ ONE (13:04)
[2023-06-10 13:06] LABS: Basophils # (auto) 0.02 K/uL (0.00-0.20); Basophils % (auto) 0.3 %; Eosinophils # (auto) 0.02 K/uL (0.00-0.50); Eosinophils % (auto) 0.3 %; Hematocrit (blood only) 33.1 % (37.0-47.0); Hemoglobin 10.7 g/dl (12.0-16.0); Immature Granulocytes # (auto) 0.03 K/uL (0.01-0.20); Immature Granulocytes % (auto) 0.4 %; Lymphocytes # (auto) 1.38 K/uL (1.20-3.40); Mean Corpuscular Hemoglobin 29.1 pg (25.0-34.0); Mean Corpuscular Hgb Conc 32.3 g/dL (32.0-36.0); Mean Corpuscular Volume 89.9 fL (80.0-100.0); Mean Platelet Volume 9.2 fL (9.4-12.4); Monocytes # (auto) 0.22 K/uL (0.11-0.59); Neutrophils # (auto) 5.61 K/uL (1.40-6.50); Platelet Count 129 K/uL (130-400); RDW Coefficient of Variation 13.6 % (11.5-14.5); RDW Standard Deviation 44.4 fL (36.4-46.3); Red Blood Count 3.68 M/uL (4.20-5.40); White Blood Count 7.28 K/ul (4.8-10.8)
[2023-06-10] MEDS ORDERED: METOCLOPRAMIDE HCL INJ 5 MG/ML 2 ML VIAL IM ONE (14:00)
[2023-06-10] MEDS ORDERED: PANTOprazole 40 MG in DEXTROSE 5% MINI-B 100 ML IV SCH (14:30)
--- NOTE | 2023-06-10 14:40 | Anesthesiology Consultation ---
Date of Service June 10, 2023 Assessment & Plan Chart Review Chart Review: Acceptable Risk for Surgery and Patient NOT seen in Pre Admission Testing Consults Requested none ASA ASA2 Proposed Anesthesia Anesthesia Type: MAC Risk / Benefits Reviewed With: PT / POA / Parent / Guardian, Accepts Plan and Informed Consent Obtained History Surgery Operation Date: 06/10/23 16:45 Proposed Procedures p Esophagogastroduodenoscopy Dr. Bean - Jonathon Bean MD Operation Date: 06/10/23 18:55 Proposed Procedures p Esophagogastroduodenoscopy - Jonathon Bean MD Height/Weight Height: 5 ft 4 in Weight: 91.2 kg Allergies Allergy/AdvReac Type Severity Reaction Status Date / Time clindamycin Allergy Verified 06/10/23 11:16 Penicillins Allergy Verified 06/10/23 11:16 Medications Home Medications Medication Instructions Recorded Confirmed Last Taken aspirin 81 mg tablet 0 mg PO DAILY 11/30/18 06/10/23 Unknown loratadine 10 mg tablet 0 mg PO DAILY 11/30/18 06/10/23 Unknown metoprolol succinate 100 mg 100 mg PO DAILY 01/23/20 06/10/23 Unknown tablet,extended release 24 hr sertraline 100 mg tablet 150 mg PO PM 01/23/20 06/10/23 Unknown verapamil 180 mg tablet,extended 180 mg PO BID 01/23/20 06/10/23 Unknown release colesevelam 625 mg tablet 625 mg PO QAM 06/02/22 06/10/23 Unknown pioglitazone 15 mg tablet 15 mg PO .EVERY OTHER MORNING 06/02/22 06/10/23 Unknown pravastatin 20 mg tablet 20 mg PO DAILY 06/02/22 06/10/23 Unknown empagliflozin 10 mg tablet 10 mg PO 3XWK 06/10/23 06/10/23 Unknown (Jardiance) gabapentin 100 mg capsule 100 mg PO DAILY 06/10/23 06/10/23 Unknown meloxicam 15 mg tablet 15 mg PO DAILY 06/10/23 06/10/23 Unknown Active Medications Generic Name Dose Route Start Last Admin Trade Name Freq PRN Reason Stop Dose Admin Octreotide Acetate 500 mcg/ 100.5 mls @ 10.05 mls/hr 06/10/23 08:15 06/10/23 09:19 Sodium Chloride IV 07/10/23 08:14 50 mcg/hr .Q10H DANIEL 10.1 mls/hr Administration 50 MCG/HR Insulin Aspart 0 units 06/10/23 11:58 06/10/23 13:04 Insulin Aspart Per Unit Charge SC 07/10/23 11:57 7 units ACHS DANIEL Administration NPO Date Last Intake of Fluids: 06/09/23 Time Last Intake of Fluids: 22:00 Date Last Intake of Solids: 06/09/23 Time Last Intake of Solids: 21:00 Past Family History Family History Mother COPD (chronic obstructive pulmonary disease) Father Lung cancer Past Surgical History Surgical History History of total abdominal hysterectomy History of parathyroidectomy History of tonsillectomy History of shoulder surgery History of knee surgery History of elbow surgery Past Anesthesia History No Hx of Anesthesia Complications and No Family Hx of Anesthesia Complications Social History Smoking Status: Never smoker Hx Alcohol Use: No Hx Substance Use: No Review of Systems ROS Unobtainable: All systems reviewed & are unremarkable except as noted in HPI & below Physical Exam Vital Signs Last Vital Signs Temp 36.7 C 06/10/23 14:23 Pulse 86 06/10/23 14:23 Resp 16 06/10/23 14:23 BP 141/83 H 06/10/23 14:23 Pulse Ox 98 06/10/23 14:23 O2 Del Method Room Air 06/10/23 14:23 ENMT Mouth: no TMJ abnormality Thyromental Distance: > or= 3.5 Finger Breadths Mallampati Class: II Neck normal visual inspection and trachea midline; neck extension not limited Respiratory normal respiratory effort Auscultation: lungs clear to auscultation bilaterally Cardiovascular Rate/Rhythm: regular rate and regular rhythm Heart Sounds: no murmur Musculoskeletal Spine: normal cervical ROM Extremities: full ROM of extremities Neurologic moves all extremities Psychiatric Orientation: alert and oriented x 3 Testing Laboratory Results 06/10/23 12:17 06/10/23 12:17 PT 12.8 Seconds (9.0-12.0) H 06/10/23 08:10 INR 1.2 (0.9-1.1) H 06/10/23 08:10 APTT 22 Seconds (21-31) 06/10/23 08:10 Urine Color Yellow 06/10/23 09:15 Urine Appearance Clear (Clear) 06/10/23 09:15 Urine pH 5.0 (4.5-7.5) 06/10/23 09:15 Ur Specific [place] 1.040 (1.000-1.030) H 06/10/23 09:15 Urine Protein Negative (Negative) 06/10/23 09:15 Urine Glucose (UA) 3+ (Negative) H 06/10/23 09:15 Urine Ketones Trace (Negative) H 06/10/23 09:15 Urine Nitrite Positive (Negative) A 06/10/23 09:15 Ur Leukocyte Esterase Negative (Negative) 06/10/23 09:15 Urine RBC 0-4 /hpf (0-4) 06/10/23 09:15 Urine WBC 5-10 /hpf (0-5) H 06/10/23 09:15 Ur Epithelial Cells 5-10 /lpf (0-5) H 06/10/23 09:15 Blood Type A Positive 06/10/23 08:21 Antibody Screen NEGATIVE 06/10/23 08:21 06/10/23 06/10/23 12:46 08:20 POC Glucose 314 H* POC Glucose (other) 413 H*
--- NOTE | 2023-06-10 15:03 | GI REPORT ---
Patient Name: Raghu Hurtado Procedure Date: 06/10/2023 2:42 PM Date of : 1950 Admit Type: Inpatient Age: 72 Gender: Female Attending MD: Jonathon Bean MD, Procedure: Upper GI endoscopy Providers: Jonathon Bean MD Referring MD: Gokul Harley Indications: Hematemesis Medicines: Monitored Anesthesia Care Complications: No immediate complications. Estimated blood loss: None. Estimated Blood Loss: Estimated blood loss: none. Procedure: Pre-Anesthesia Assessment: - Prior Anticoagulants: The patient has taken no anticoagulant or antiplatelet agents. - ASA Grade Assessment: III - A patient with severe systemic disease. After obtaining informed consent, the endoscope was passed under direct vision. Throughout the procedure, the patient's blood pressure, pulse, and oxygen saturations were monitored continuously. The Endoscope was introduced through the mouth, and advanced to the second part of duodenum. The upper GI endoscopy was accomplished without difficulty. The patient tolerated the procedure well. Findings: The examined esophagus was normal. No varices noted. A large, ulcerated, non-circumferential mass with no bleeding was found in the gastric body. Biopsies were taken with a cold forceps for histology. Estimated blood loss: none. significant old blood noted in the stomach, no active bleeding noted throughout. suspect bleeding source was the mass. The duodenal bulb and second portion of the duodenum were normal. Impression: - Normal esophagus. - Rule out malignancy, gastric tumor in the gastric body. Biopsied. - Normal duodenal bulb and second portion of the duodenum. Recommendation: - [facility]. - Clear liquid diet today. -stop octreotide -protonix 40 mg daily -supportive care - Await pathology results. if negative consider repeat EGD next week. Jonathon Bean MD 06/10/2023 3:02:40 PM This report has been signed electronically. Note Initiated On: 06/10/2023 2:42 PM Number of Addenda: 0 I attest to the content of the Intraoperative Record and orders documented therein, exceptions below {[id number]}
--- NOTE | 2023-06-10 15:27 | Anesthesiology Progress Note ---
Date of Service June 10, 2023 Anesthesia Post Procedure Vital Signs Vital Signs: Temp Pulse Pulse Resp BP BP Pulse Ox 06/10/23 15:17 87 16 100/75 93 06/10/23 15:03 85 16 131/69 98 06/10/23 14:23 36.7 C 86 16 141/83 H 98 06/10/23 14:18 84 18 155/89 H 94 06/10/23 12:00 86 16 117/84 97 06/10/23 11:01 91 H 18 112/68 94 06/10/23 10:00 85 16 145/68 H 92 06/10/23 08:35 88 06/10/23 08:09 36.5 C 84 18 152/86 H 95 O2 Del Method O2 Flow Rate 06/10/23 15:17 Room Air 06/10/23 15:03 Oxymask 10 06/10/23 14:23 Room Air 06/10/23 14:18 Room Air 06/10/23 12:00 06/10/23 11:01 06/10/23 10:00 06/10/23 08:35 06/10/23 08:09 Room Air Transfer of Care Handoff Completed per policy Notes Mental Status: alert / awake / arousable Patient Amnestic to Procedure: Yes Nausea / Vomiting: adequately controlled Pain: adequately controlled Airway Patency, RR, SpO2: stable & adequate BP & HR: stable & adequate Hydration State: stable & adequate Anesthetic Complications: no major complications apparent and Pt Satisfied with anesthetic care
[2023-06-10] MEDS: PROPOFOL IV EMULSION 10 MG/ML 20 ML VIAL IV ONE (16:02)
[2023-06-10] MEDS: LIDOCAINE 2% 2 ML VIAL/AMP(20MG/ML) INFIL ONE (16:02)
[2023-06-10] MEDS: Nursing to Pharmacy Communication SCH (16:05)
[2023-06-10] MEDS: SODIUM CHLORIDE 0.9% 1,000 ML IV SCH (16:34)
[2023-06-10 18:02] LABS: Hematocrit (blood only) 29.7 % (37.0-47.0); Hemoglobin 9.7 g/dl (12.0-16.0)
[2023-06-10] MEDS: SUCRALFATE 1 GM/10 ML UDC PO SCH (18:10)
[2023-06-10] MEDS: LANTUS PER UNIT CHARGE SQ SCH (21:47)
[2023-06-10 23:31] LABS: Hematocrit (blood only) 26.7 % (37.0-47.0); Hemoglobin 8.8 g/dl (12.0-16.0)
[2023-06-11 06:45] LABS: Basophils # (auto) 0.02 K/uL (0.00-0.20); Basophils % (auto) 0.4 %; Eosinophils # (auto) 0.09 K/uL (0.00-0.50); Eosinophils % (auto) 1.9 %; Hematocrit (blood only) 29.1 % (37.0-47.0); Hemoglobin 9.7 g/dl (12.0-16.0); Immature Granulocytes # (auto) 0.04 K/uL (0.01-0.20); Immature Granulocytes % (auto) 0.8 %; Lymphocytes # (auto) 1.65 K/uL (1.20-3.40); Lymphocytes % (auto) 34.4 %; Mean Corpuscular Hemoglobin 29.9 pg (25.0-34.0); Mean Corpuscular Hgb Conc 33.3 g/dL (32.0-36.0); Mean Corpuscular Volume 89.8 fL (80.0-100.0); Mean Platelet Volume 9.1 fL (9.4-12.4); Monocytes # (auto) 0.26 K/uL (0.11-0.59); Monocytes % (auto) 5.4 %; Neutrophils # (auto) 2.74 K/uL (1.40-6.50); Neutrophils % (auto) 57.1 %; Platelet Count 104 K/uL (130-400); RDW Coefficient of Variation 13.6 % (11.5-14.5); RDW Standard Deviation 44.4 fL (36.4-46.3); Red Blood Count 3.24 M/uL (4.20-5.40)
[2023-06-11 08:11] LABS: BUN Creatinine Ratio 43.4 (10-20); Calcium 8.5 mg/dl (8.6-10.3); Est GFR (African American) 89.6 ml/min; Est GFR (Non-African American) 77.3 ml/min; Potassium 4.3 mmol/L (3.5-5.1)
[2023-06-11] MEDS: VERAPAMIL HCL 180 MG TABCR PO SCH (08:27)
[2023-06-11] MEDS: METOPROLOL SUCC 50MG EXT REL TAB PO SCH (08:27)
[2023-06-11 11:33] LABS: Estimated Average Glucose 214 mg/dl; Hemoglobin A1C 9.1 % (4.5-5.6)
--- NOTE | 2023-06-11 14:16 | Hospitalist Progress Note ---
Date of Service June 11, 2023 Assessment & Plan (1) Acute upper gastrointestinal bleeding: Plan: EGD was completed June 10 and a gastric mass was seen. Pathology is pending. She remains on Protonix and octreotide drips at this time. Appreciate gastroenterology consultation and recommendations. She has been started on a clear liquid diet and IV fluids taper down. 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 No previous history of esophageal varices (3) Diabetes: Plan: Type II. Basal insulin therapy for now. Sliding scale coverage. Improving (4) Hypertension: Plan: Continue metoprolol and verapamil. Telemetry Plan Hopeful discharge to home within the next 48 to 72 hours Admission and Anticipated Discharge Date Admission Date: June 10, 2023 Subjective Alert and oriented. No distress. Pathology from the gastric mass biopsy remains pending. She remains on Protonix drip and octreotide drip. Hopefully GI will discontinue octreotide today and switch the Protonix to twice daily dosing. Potassium improved from 5.4 on admission down to 4.3. Hemoglobin A1c is 9.1. Glucose is improving with Lantus therapy. Urine culture remains pending. She is allowed a clear liquid diet and IV fluids have been tapered down. Review of Systems 2 Review of Systems: Constitutional-no fever or chills ENT-no blurred vision, no double vision, no epistaxis, no sore throat Respiratory-no cough, no wheezing, no shortness of breath Cardiac-no palpitations, no chest pain, no syncope GI-several episodes of hematemesis and melena. No hematochezia. She does describe epigastric discomfort -no urinary retention, no urinary incontinence, no dysuria, no hematuria Musculoskeletal-no joint pain, no muscle tenderness Skin-no bruising, no rashes, no pruritus Neuro-no isolated weakness, no paresthesia, no weakness Psych-no depression, no anxiety Physical Exam 2 Physical Exam: General-alert and oriented x3, no fever, no chills HEENT-head atraumatic and normocephalic, pupils equal and reactive to light, extraocular muscles intact Neck-no lymphadenopathy or thyromegaly, trachea midline Chest-clear to auscultation. No rales ,wheezing or rhonchi Cardiac-regular rate and rhythm, normal S1 and S2 Abdomen-normal bowel sounds, nontender, no hepatosplenomegaly Extremities-no cyanosis, clubbing, or edema. Brawny induration noted bilateral lower extremities below the knees Neuro-cranial nerves II through XII intact, motor and sensory function within normal limits, strength symmetrical, no focal deficits Psych-normal affect, normal mood Results & Data Results & Data Vital Signs (Past 12 Hours) Vital Signs Temp Pulse Pulse Resp BP BP Pulse Ox 06/11/23 11:48 36.8 C 85 16 135/78 94 06/11/23 09:23 91 H 06/11/23 07:56 37.1 C 92 H 16 151/72 H 96 06/11/23 04:28 88 18 182/81 H 94 06/11/23 04:07 36.3 C L 88 18 177/83 H 94 O2 Del Method 06/11/23 11:48 Room Air 06/11/23 09:23 06/11/23 07:56 Room Air 06/11/23 04:28 Room Air 06/11/23 04:07 Room Air Laboratory Results 06/11/23 06:11 06/11/23 06:11 PG Care Time/CCT Total # of Minutes Spent Total Time Spent with Patient: Total time spent is greater than 50% in coordination of care (as documented) at patient's floor/unit and/or counseling patient: Coding Level of Care Code 93079 SUB INP/OBS CARE 3/50MIN Diagnoses Acute upper gastrointestinal bleeding K92.2 Cryptogenic cirrhosis K74.69 Diabetes E11.9 Hypertension I10
[2023-06-12 07:03] LABS: Eosinophils # (auto) 0.11 K/uL (0.00-0.50); Eosinophils % (auto) 2.7 %; Hematocrit (blood only) 26.1 % (37.0-47.0); Hemoglobin 8.7 g/dl (12.0-16.0); Immature Granulocytes # (auto) 0.03 K/uL (0.01-0.20); Immature Granulocytes % (auto) 0.7 %; Lymphocytes # (auto) 1.37 K/uL (1.20-3.40); Lymphocytes % (auto) 33.7 %; Mean Corpuscular Hemoglobin 29.5 pg (25.0-34.0); Mean Corpuscular Hgb Conc 33.3 g/dL (32.0-36.0); Mean Corpuscular Volume 88.5 fL (80.0-100.0); Mean Platelet Volume 8.7 fL (9.4-12.4); Monocytes # (auto) 0.18 K/uL (0.11-0.59); Monocytes % (auto) 4.4 %; Neutrophils # (auto) 2.38 K/uL (1.40-6.50); Neutrophils % (auto) 58.5 %; Platelet Count 114 K/uL (130-400); RDW Coefficient of Variation 13.8 % (11.5-14.5); RDW Standard Deviation 44.7 fL (36.4-46.3); Red Blood Count 2.95 M/uL (4.20-5.40); White Blood Count 4.07 K/ul (4.8-10.8)
[2023-06-12 07:35] LABS: Calcium 8.2 mg/dl (8.6-10.3); Creatinine Clr Calc Pharmacy 84.4 ml/min; Est GFR (African American) 101.9 ml/min; Est GFR (Non-African American) 87.9 ml/min
[2023-06-12] MEDS: SUCRALFATE 1 GM TAB PO SCH (12:10)
--- NOTE | 2023-06-12 15:31 | Hospitalist Progress Note ---
Date of Service June 12, 2023 Assessment & Plan (1) Acute upper gastrointestinal bleeding: Plan: EGD was completed June 10 and a gastric mass was seen. Pathology remain pending. Treated initially with Protonix and octreotide drips. Octreotide has been discontinued and Protonix drip switched to oral dosing. Carafate has also been added. Appreciate gastroenterology consultation and recommendations. Diet has been advanced today to full liquids and will go further to ADA diet tomorrow, June 13, starting with breakfast if she remains stable. 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 No previous history of esophageal varices. Current EGD negative for esophageal varices (3) Diabetes: Plan: Much better with basal insulin therapy while hospitalized. She will resume her usual diabetic management at discharge. Sliding scale coverage. (4) Hypertension: Plan: Continue metoprolol and verapamil. Telemetry Plan Hopeful discharge to home tomorrow, June 13 Admission and Anticipated Discharge Date Admission Date: June 10, 2023 Subjective Alert and oriented. Anxious to go home. Protonix drip and Seretide drip have been discontinued. She is now on oral Protonix therapy and Carafate. Hemoglobin is lower than admission but stable. Diet has been advanced to full liquids. IV fluids discontinued. Glucose has declined nicely to 140 with current basal insulin. Urine cultures growing 3 organisms with no clear-cut UTI. Pathology from the gastric mass biopsy remains pending. Hopefully she can go home tomorrow, June 13 Review of Systems 2 Review of Systems: Constitutional-no fever or chills ENT-no blurred vision, no double vision, no epistaxis, no sore throat Respiratory-no cough, no wheezing, no shortness of breath Cardiac-no palpitations, no chest pain, no syncope GI-several episodes of hematemesis and melena. No hematochezia. She does describe epigastric discomfort -no urinary retention, no urinary incontinence, no dysuria, no hematuria Musculoskeletal-no joint pain, no muscle tenderness Skin-no bruising, no rashes, no pruritus Neuro-no isolated weakness, no paresthesia, no weakness Psych-no depression, no anxiety Physical Exam 2 Physical Exam: General-alert and oriented x3, no fever, no chills HEENT-head atraumatic and normocephalic, pupils equal and reactive to light, extraocular muscles intact Neck-no lymphadenopathy or thyromegaly, trachea midline Chest-clear to auscultation. No rales ,wheezing or rhonchi Cardiac-regular rate and rhythm, normal S1 and S2 Abdomen-normal bowel sounds, nontender, no hepatosplenomegaly Extremities-no cyanosis, clubbing, or edema. Brawny induration noted bilateral lower extremities below the knees Neuro-cranial nerves II through XII intact, motor and sensory function within normal limits, strength symmetrical, no focal deficits Psych-normal affect, normal mood Results & Data Results & Data Vital Signs (Past 12 Hours) Vital Signs Temp Pulse Pulse Resp BP BP Pulse Ox 06/12/23 14:51 73 06/12/23 12:04 36.5 C 73 16 118/70 95 06/12/23 08:01 36.9 C 76 16 154/78 H 96 06/12/23 07:17 71 06/12/23 05:08 36.6 C 73 18 160/67 H 96 O2 Del Method 06/12/23 14:51 06/12/23 12:04 Room Air 06/12/23 08:01 Room Air 06/12/23 07:17 06/12/23 05:08 Room Air Laboratory Results 06/12/23 06:33 06/12/23 06:33 PG Care Time/CCT Total # of Minutes Spent Total Time Spent with Patient: Total time spent is greater than 50% in coordination of care (as documented) at patient's floor/unit and/or counseling patient: Coding Level of Care Code 43145 SUB INP/OBS CARE 3/50MIN Diagnoses Acute upper gastrointestinal bleeding K92.2 Cryptogenic cirrhosis K74.69 Diabetes E11.9 Hypertension I10
[2023-06-12] MEDS: PANTOprazole 40 MG TAB PO SCH (21:38)
[2023-06-13 07:54] LABS: Basophils # (auto) 0.01 K/uL (0.00-0.20); Basophils % (auto) 0.3 %; Eosinophils % (auto) 2.9 %; Hematocrit (blood only) 26.3 % (37.0-47.0); Hemoglobin 8.7 g/dl (12.0-16.0); Immature Granulocytes # (auto) 0.01 K/uL (0.01-0.20); Immature Granulocytes % (auto) 0.3 %; Lymphocytes # (auto) 1.07 K/uL (1.20-3.40); Mean Corpuscular Hemoglobin 29.6 pg (25.0-34.0); Mean Corpuscular Hgb Conc 33.1 g/dL (32.0-36.0); Mean Corpuscular Volume 89.5 fL (80.0-100.0); Mean Platelet Volume 8.9 fL (9.4-12.4); Monocytes # (auto) 0.21 K/uL (0.11-0.59); Monocytes % (auto) 6.1 %; Neutrophils # (auto) 2.05 K/uL (1.40-6.50); Neutrophils % (auto) 59.4 %; Platelet Count 100 K/uL (130-400); RDW Coefficient of Variation 13.9 % (11.5-14.5); RDW Standard Deviation 44.9 fL (36.4-46.3); Red Blood Count 2.94 M/uL (4.20-5.40); White Blood Count 3.45 K/ul (4.8-10.8)
[2023-06-13 08:44] LABS: BUN Creatinine Ratio 17.5 (10-20); Calcium 8.6 mg/dl (8.6-10.3); Creatinine Clr Calc Pharmacy 85.7 ml/min; Est GFR (African American) 102.4 ml/min; Est GFR (Non-African American) 88.4 ml/min; Potassium 4.2 mmol/L (3.5-5.1)
--- NOTE | 2023-06-13 14:24 | Discharge Summary ---
Date of Service June 13, 2023 Admission HPI Per Admitting Provider 72-year-old female who states she has a history of nonalcohol induced cirrhosis and also a history of peptic ulcer disease. Yesterday she developed melena and gross hematemesis. She also has epigastric discomfort. She normally takes Pepcid. She is currently on Protonix and octreotide infusion. GI consult has been obtained and she will undergo EGD later today. She denies gross hematochezia. Will continue metoprolol and verapamil along with basal insulin therapy for now along with IV fluids. Avoid subcutaneous heparin or Lovenox for now. Principal Diagnosis Bleeding gastric mass, upper GI bleed, hyperglycemia due to uncontrolled type 2 diabetes, hyperkalemia Discharge Exam General-alert and oriented x3, no fever, no chills HEENT-head atraumatic and normocephalic, pupils equal and reactive to light, extraocular muscles intact Neck-no lymphadenopathy or thyromegaly, trachea midline Chest-clear to auscultation. No rales ,wheezing or rhonchi Cardiac-regular rate and rhythm, normal S1 and S2 Abdomen-normal bowel sounds, nontender, no hepatosplenomegaly Extremities-no cyanosis, clubbing, or edema. Brawny induration noted bilateral lower extremities below the knees Neuro-cranial nerves II through XII intact, motor and sensory function within normal limits, strength symmetrical, no focal deficits Psych-normal affect, normal mood Discharge Data Allergies Allergy/AdvReac Type Severity Reaction Status Date / Time clindamycin Allergy Verified 06/10/23 11:16 Penicillins Allergy Verified 06/10/23 11:16 Consultations 06/10/23 08:38 Consult Gastroenterology Stat 06/10/23 09:08 ED Decision to Admit Stat 06/10/23 10:57 Consult Gastroenterology Stat Procedures Performed Operation Date: 06/10/23 18:55 <No data on this case meets the specified criteria> Ordered Studies 06/10/23 08:39 CT abd pelvis IV con only Stat Diabetes Follow up Diabetes Follow-up Needed for HgbA1c >9% Hospital Course (1) Acute upper gastrointestinal bleeding: EGD was completed June 10 and a gastric mass was seen. Pathology report remains pending. Treated initially with Protonix and octreotide drips. Octreotide has been discontinued and Protonix drip switched to oral dosing. Carafate has also been added. Appreciate gastroenterology consultation and recommendations. Diet has been advanced to ADA diet. 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 No previous history of esophageal varices. Current EGD negative for esophageal varices (3) Diabetes: Much better with basal insulin therapy while hospitalized. She will resume her usual diabetic management at discharge. Sliding scale coverage. (4) Hypertension: Continue metoprolol and verapamil. Telemetry Plan Home today, June 13. She will follow-up with her PCP to review gastric mass pathology report findings. She will remain on Protonix and Carafate at [facility]. Total Time Total Time Spent Total Time Spent (In Minutes): 45-minute Discharge Plan Discharge Items Patient Disposition: Home - Self-Care Reason For Visit: UPPER GI BLEED Discharge Diagnosis: Bleeding gastric mass, upper GI bleed, acute blood loss anemia, hyperkalemia, uncontrolled type 2 diabetes Activity: Resume your previous activity Non-emergency contact: Primary Care Provider Call non-emergency contact if: you have any medication questions and your symptoms worsen Follow-up/Referrals: Dee James [Primary Care Provider] - Diet: Carb Consistent or DM2 Addtl Attending Provider Instructions: Take Protonix and Carafate as directed. Follow-up with primary care provider within 1 or 2 weeks to review pathology report findings Pending Studies at Discharge: Yes Studies:: Gastric mass pathology report Stand-Alone Forms: My [facility] [employer], Smoking Cessation Medications and DC Order Prescriptions: New sucralfate 1 gram Tablet 1 g PO QID Qty: 60 0RF pantoprazole 40 mg Tablet,Delayed Release (Dr/Ec) 40 mg PO BID Qty: 60 0RF Continued pravastatin 20 mg tablet 20 mg PO DAILY pioglitazone 15 mg tablet 15 mg PO .EVERY OTHER MORNING loratadine 10 mg tablet 0 mg PO DAILY Rx Instructions: Unable to verify OTC meds with patient/family at this date/time. aspirin 81 mg tablet 0 mg PO DAILY Rx Instructions: Unable to verify OTC meds with patient/family at this date/time. colesevelam 625 mg tablet 625 mg PO QAM sertraline 100 mg tablet 150 mg PO PM metoprolol succinate 100 mg tablet extended release 24 hr 100 mg PO DAILY verapamil 180 mg tablet extended release 180 mg PO BID meloxicam 15 mg tablet 15 mg PO DAILY gabapentin 100 mg capsule 100 mg PO DAILY Jardiance 10 mg tablet 10 mg PO [id number] Rx Instructions: Tuesday/Tuesday/Tuesday Discharge Orders: Discharge Order (Routine); Ordered 06/13/23 Ordered By: Gokul Shah/Other Patient Handouts: High Blood Sugar (Hyperglycemia), Managing Type 2 Diabetes Admission Data Admit Date/Time: 06/10/23 11:35 Attending Provider: Gokul Harley Admit Provider: Gokul Harley Primary Care Provider: Dee James Other Providers: Jonathon Bean; Gokul Harley Coding Level of Care Code 49660 INP/OBS DISCH >30 MIN Diagnoses Acute upper gastrointestinal bleeding K92.2 Cryptogenic cirrhosis K74.69 Diabetes E11.9 Hypertension I10
--- NOTE | 2023-06-16 11:57 | Coding Query ---
PATHOLOGY To promote full compliance with coding requirements relating to patient care, physician participation is requested in all cases of [employer] uncertainty. Please assist us with the question(s) below: Please review the Pathology report and please document any relevant diagnosis(es) below: Diagnosis(es): neuroendocrine gastric carcinoma Thank you Marlys COTO
== END 2023-06-13 16:06 | disposition home or self-care (01) | DRG 844 ==
LOC: ED 08:02 → EDINP 11:35 → 2N 11:53